=== PATIENT | male | born 1985 | race Hispanic/Latino ===

== ENCOUNTER → 2024-12-10 | Day surgery (SDC) | payer OTHER ==
[~2024-12-10] MED LIST: BENICAR20 MG PO; CARAFATE1 GM/10 ML PO; FENTANYL CITRATE/PF 100MCG/2 ML INJ ONE; HYOSCYAMINE0.375 MG PO; LIDOCAINE HCL 2% LOCAL INJ 5 ML SDV VIAL INJ ONE; MIDAZOLAM HCL 2 MG/2 ML VIAL ONE; PANTOPRAZOLE SO40 MG PO; PROPOFOL IV EMULSION 10 MG/ML 20 ML VIAL ONE; SERTRALINE HCL50 MG PO
[2024-12-10 13:13] VITALS: TEMP 98.5
[2024-12-10 13:30] VITALS: BP 120/68; PULSE 55; RESP 16; O2SAT 95
== END | disposition home or self-care (01) ==
LOC: OR 10:32
PROVIDERS: ATTEND Internal Medicine Gastroenterology
DX: K29.50 Unspecified chronic gastritis without bleeding (principal); K20.90 Esophagitis, unspecified without bleeding; K21.9 Gastro-esophageal reflux disease without esophagitis; R63.0 Anorexia; R63.4 Abnormal weight loss; I10 Essential (primary) hypertension; Z71.89 Other specified counseling; F41.9 Anxiety disorder, unspecified; F32.A Depression, unspecified; F17.290 Nicotine dependence, other tobacco product, uncomplicated; Z79.899 Other long term (current) drug therapy; Z68.34 Body mass index [BMI] 34.0-34.9, adult; Z71.3 Dietary counseling and surveillance
CPT/HCPCS: 43239; J2003; J2250; J2470; J2704; J3010